=== PATIENT | male | born 2000 | race Caucasian/White ===

== ENCOUNTER 2019-03-19 10:33 | Emergency (ER) | payer BC ==
[~2019-03-19] VITALS: Ht 175.3 cm; Wt 105.5 kg
[~2019-03-19 10:33] MED LIST: AMOX1TAB10 PO; CEPH500C PO; IBUP-1542 PO
[2019-03-19 10:36] VITALS: BP 136/74; PULSE 72; RESP 18; Ht 175.3 cm; Wt 105.5 kg
== END 2019-03-19 11:36 | disposition home or self-care (01) ==
LOC: FTE 10:33
DX: H66.93 Otitis media, unspecified, bilateral (principal)
CPT/HCPCS: 99283